=== PATIENT | female | born 1935 ===

== ENCOUNTER 2018-05-30 13:32 | Outpatient (CLI) | payer MEDICARE ==
--- NOTE | 2018-05-30 16:28 | XRay Report ---
XRAY LEFT HIP THREE VIEWS: 05/30/18 13:32:00 CLINICAL: Pain. FINDINGS: Severe osteoarthritis of the right hip with large superolateral osteophytes, medial and inferior joint space narrowing with osteophytes and heterogeneous increased density of the femoral head. Normal femoral head contour. Geodes of the inferior acetabular rim. No fracture or dislocation. Less severe osteoarthritis of the left hip. The pelvic bones are intact. The SI joints are normal. IMPRESSION: Severe osteoarthritis of the right hip. 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 No fracture.
== END 2018-05-30 13:33 | disposition home or self-care (01) ==
LOC: SPVIMAG 13:32
PROVIDERS: ATTEND Orthopaedic Surgery Sports Medicine
DX: M16.12 Unilateral primary osteoarthritis, left hip (principal)